=== PATIENT | male | born 1995 | race Caucasian/White ===

== ENCOUNTER 2023-08-05 15:33 | Emergency (ER) | payer OTHER, SELFPAY ==
[2023-08-05 15:42] VITALS: BP 119/80; PULSE 75; TEMP 37.7; O2SAT 99; BMI 24.1
--- NOTE | 2023-08-05 15:49 | ECG_ITS ---
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 Measurements Intervals [place] Rate: 73 P: 64 ME: 204 QRS: 60 QRSD: 97 T: 29 QT: 363 QTc: 400 Interpretive Statements SINUS RHYTHM No previous ECG available for comparison Electronically Signed On 08-05-2023 19:29:37 CDT by Dat Whitaker M.D. [id number]
--- NOTE | 2023-08-05 15:52 | XRR_ITS ---
PROCEDURE INFORMATION: Exam: XR Chest Exam date and time: 08/05/2023 4:07 PM Age: 28 years old Clinical indication: Pain; Angina pectoris; Additional info: Cp TECHNIQUE: Imaging protocol: Radiologic exam of the chest. Views: 1 view. COMPARISON: No relevant prior studies available. FINDINGS: Lungs: Unremarkable. No consolidation. Pleural spaces: Unremarkable. No pleural effusion. No pneumothorax. Heart/Mediastinum: Unremarkable. No cardiomegaly. Bones/joints: Unremarkable. XR/XR chest 1V portable [id number] IMPRESSION: No acute findings.
[2023-08-05 16:57] LABS: Basophils % 0.4 %; Eosinophils # 0.1 10^3/uL (0.0-0.8); Hematocrit 41.5 % (37-53); Lymphocytes # 1.5 10^3/uL (0.8-4.8); Lymphocytes % 31.7 %; Mean Corpuscular Hemoglobin 29.6 pg (27-33); Mean Platelet Volume 10.3 fL (7.4-10.4); Monocytes # 0.2 10^3/uL (0.2-0.9); Monocytes % 4.9 %; Neutrophils # 2.83 10^3/uL (1.8-7.7); Neutrophils % 59.8 %; Nucleated Red Blood Cells % 0 %; Platelet Count 140 10^3/cmm (157-399); Red Blood Count 4.77 10^6/uL (3.85-5.65); White Blood Count 4.73 10^3/uL (3.29-11.43)
[2023-08-05 17:11] LABS: Slide Review Slide Review Perform
[2023-08-05 17:19] LABS: Troponin(5th) Baseline 6 ng/L (0-15)
[2023-08-05 17:20] LABS: Alanine Aminotransferase 123 U/L (0-41); Albumin Level 3.8 g/dL (3.5-5.2); Alkaline Phosphatase 160 U/L (40-130); Anion Gap 13.3 (5-19); Aspartate Amino Transferase 64 U/L (0-40); Blood Urea Nitrogen 10 mg/dL (6-20); Calcium 8.3 mg/dL (8.5-10.5); Carbon Dioxide 28 mmol/L (22-29); Chloride 100 mmol/L (98-107); Globulin 2.1 g/dL (1.3-4.6); Glomerular Filtration Rate 87.7 mL/min (90-130); Glucose 99 mg/dL (65-115); Osmolality Calculated 283 mOsm/kg (285-295); Potassium 4.3 mmol/L (3.5-5.1); Sodium 137 mmol/L (136-145); Total Bilirubin 0.5 mg/dL (0.15-1.2); Total Protein 5.9 g/dL (6.6-8.7)
--- NOTE | 2023-08-05 18:01 | ECG_ITS ---
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 Measurements Intervals [place] Rate: 71 P: 35 PA: 180 QRS: 60 QRSD: 98 T: 35 QT: 375 QTc: 408 Interpretive Statements SINUS RHYTHM Compared to ECG 08/05/2023 15:49:11 No significant changes Electronically Signed On 08-05-2023 19:30:46 CDT by Dat Whitaker M.D. [id number]
--- NOTE | 2023-08-05 18:32 | ED_ITS ---
HPI - Weakness General: Chief complaint: Weakness Stated complaint: fever,bodyaches, chills, Time Seen by Provider: 08/05/23 18:22 History of Present Illness: Patient presents to the ER with complaints of fever body aches chills weakness is overall malaise for over 1 week. Patient's been seen multiple times at the urgent care and had blood work done there he said they thought he had a tickborne illness because his liver enzymes elevated and his platelets were low. They started him on clindamycin after being on Bactrim for about a week for abscess on his right abdominal wall. Now he says he has not been able to eat or drink just has not had any appetite. Has not had any nausea or vomiting he just has no desire. Patient states he actually feels much better now that has been here in the ER for several hours. Review of Systems General: Reports: 10 or more systems reviewed and unremarkable except in HPI and below Physical Exam Const: COMMON NORMALS: no acute distress, average body habitus, patient oriented x3, no limitations, healthy appearing, alert and well nourished HENMT: COMMON NORMALS: normocephalic, atraumatic, hearing grossly normal bilaterally, external ears normal and moist oral mucous membranes HEAD & SCALP: normocephalic and atraumatic EXTERNAL EAR: Yes external ears normal Eye: COMMON NORMALS: Equal, round and reactive pupils present, EOMs intact bilaterally, conjunctivae normal and no scleral icterus CONJUNCTIVA: Yes conjunctivae normal PUPIL: Yes Equal, round and reactive pupils present Neck/C-Spine: COMMON NORMALS: full ROM, no lymphadenopathy, supple, no meningeal signs, no JVD and Thyroid normal THYROID: Thyroid normal Lymph: LYMPHATIC: no lymphadenopathy noted Chest: COMMONS NORMALS: normal inspection of the chest and normal palpation of entire chest wall Resp: COMMON NORMALS: normal respiratory effort, No retractions, No use of accessory muscles and clear to auscultation bilaterally AUSCULTATION: clear to auscultation bilaterally Cardio: COMMON NORMALS: no JVD, regular rate, regular rhythm, S1 normal heart sound present, S2 normal heart sound present, No gallops present (Cardio), No clicks present (Cardio), No murmurs present (Cardio) and No rub (Cardio) RATE: regular rate RHYTHM: regular rhythm HEART SOUNDS: S1 normal heart sound present and S2 normal heart sound present GI: COMMON NORMALS: Normal to inspection, nondistended, normoactive bowel sounds present, Soft to palpation, non-tender, No hepatosplenomegaly present and no masses PALPATION: Yes Soft to palpation and Yes No hepatosplenomegaly present OTHER: Healing abscess type lesion on right lateral abdominal wall. : COMMON NORMALS: Yes no CVA tenderness BLADDER/KIDNEY EXAM: Yes no CVA tenderness Back/Pelvis: COMMON NORMALS: no CVA tenderness Neuro: COMMON NORMALS: patient oriented x3 SENSORIUM/ORIENTATION: Yes alert MENINGEAL SIGNS: Yes no meningeal signs Course Vital Signs: Vital signs: Vital Signs Temperature 99.8 F H 08/05/23 15:42 Pulse Rate 68 08/05/23 20:22 Blood Pressure 120/73 08/05/23 20:22 Pulse Oximetry 97 08/05/23 20:22 Oxygen Delivery Me thod Room Air 08/05/23 19:30 MDM - Weakness Medical Decision Making Patient presents to the ER for just not feeling well wanted to second opinion from urgent care. Patient has had lab work done COVID testing is on multiple antibiotics and is not feeling good all over. Patient is feeling better now since he says here for several hours. Patient did say he got 2 L of fluid similar earlier today. Lab work was obtained which revealed slightly elevated liver enzymes and slightly low platelets. These results were discussed with the patient and his family and since patient is feeling much better he will continue the current antibiotics and will be discharged from the ER to follow-up with his PCP Differential Diagnosis Unlikely acute myocardial infarction, anemia, hypoglycemia, hypothyroidism, rhabdomyolysis, sepsis or dehydration Medical Records I reviewed the patient's medical records. Lab Data I reviewed the patient's lab results. 08/05/23 16:39 08/05/23 16:39 Radiology Impressions Chest X-Ray 08/05/23 15:52 IMPRESSION: No acute findings. Laboratory Results WBC 4.73 10^3/uL (3.29-11.43) 08/05/23 16:39 RBC 4.77 10^6/uL (3.85-5.65) 08/05/23 16:39 Hgb 14.10 g/dL (11.27-16.99) 08/05/23 16:39 Hct 41.5 % (37-53) 08/05/23 16:39 MCV 87.0 fl (82-101) 08/05/23 16:39 MCH 29.6 pg (27-33) 08/05/23 16:39 MCHC 34.0 g/dL (30-55) 08/05/23 16:39 RDW 12.0 % (12.1-15.1) L 08/05/23 16:39 Plt Count 140 10^3/cmm (157-399) L 08/05/23 16:39 MPV 10.3 fL (7.4-10.4) 08/05/23 16:39 Neut % (Auto) 59.8 % 08/05/23 16:39 Lymph % (Auto) 31.7 % 08/05/23 16:39 Cassia % (Auto) 4.9 % 08/05/23 16:39 Eos % (Auto) 3.0 % 08/05/23 16:39 Baso % (Auto) 0.4 % 08/05/23 16:39 Neut # (Auto) 2.83 10^3/uL (1.8-7.7) 08/05/23 16:39 Lymph # (Auto) 1.5 10^3/uL (0.8-4.8) 08/05/23 16:39 Cassia # (Auto) 0.2 10^3/uL (0.2-0.9) 08/05/23 16:39 Eos # (Auto) 0.1 10^3/uL (0.0-0.8) 08/05/23 16:39 Baso # (Auto) 0.0 10^3/uL (0.0-0.1) 08/05/23 16:39 Nucleated RBC % (auto) 0 % 08/05/23 16:39 Nucleated RBCs # 0.0 /100WBC 08/05/23 16:39 Sodium 137 mmol/L (136-145) 08/05/23 16:39 Potassium 4.3 mmol/L (3.5-5.1) 08/05/23 16:39 Chloride 100 mmol/L (98-107) 08/05/23 16:39 Carbon Dioxide 28 mmol/L (22-29) 08/05/23 16:39 Anion Gap 13.3 (5-19) 08/05/23 16:39 BUN 10 mg/dL (6-20) 08/05/23 16:39 Creatinine 1.0 mg/dL (0.7-1.2) 08/05/23 16:39 GFR Calculation 87.7 mL/min (90-130) L 08/05/23 16:39 Glucose 99 mg/dL (65-115) 08/05/23 16:39 Calculated Osmolality 283 mOsm/kg (285-295) L 08/05/23 16:39 Calcium 8.3 mg/dL (8.5-10.5) L 08/05/23 16:39 Total Bilirubin 0.5 mg/dL (0.15-1.2) 08/05/23 16:39 AST 64 U/L (0-40) H 08/05/23 16:39 ALT 123 U/L (0-41) H 08/05/23 16:39 Alkaline Phosphatase 160 U/L (40-130) H 08/05/23 16:39 Troponin T Baseline 6 ng/L (0-15) 08/05/23 16:39 Troponin T 120 Minute 6.0 ng/L (0-15) 08/05/23 19:45 Delta Troponin T 0 ABS# (0-10) 08/05/23 19:45 Total Protein 5.9 g/dL (6.6-8.7) L 08/05/23 16:39 Albumin 3.8 g/dL (3.5-5.2) 08/05/23 16:39 Globulin 2.1 g/dL (1.3-4.6) 08/05/23 16:39 TSH 2.93 uIU/mL (0.27-4.20) 08/05/23 16:39 No radiology studies performed this visit Discharge Plan Discharge Patient Disposition: Home Clinical Impression: Liver enzyme elevation, Low platelet count, Generalized weakness Condition: Stable Discharge Orders: Discharge ED (Routine); Ordered 08/05/23 Ordered By: Agustin Whitfield Referrals: Parmjit Vasquez MD [Primary Care Provider] - 1 week Patient Instructions: Weakness (Generalized) Activity Restrictions/Additional Instructions: Continue current medications as discussed through the ER. Please follow-up with family practice physician within the next week for further evaluation and testing of elevated liver enzymes and low platelets. 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
[2023-08-05 18:41] VITALS: BP 102/83; PULSE 66; O2SAT 100
[2023-08-05 19:00] VITALS: BP 117/72; PULSE 66; O2SAT 99
[2023-08-05 19:30] VITALS: BP 119/71; PULSE 68; O2SAT 100
[2023-08-05 19:45] LABS: Thyroid Stimulating Hormone 2.93 uIU/mL (0.27-4.20)
[2023-08-05 20:22] VITALS: BP 120/73; PULSE 68; O2SAT 97
[2023-08-05 20:47] LABS: Troponin 5 2HR Delta 0 ABS# (0-10)
== END 2023-08-05 20:23 | disposition home or self-care (01) ==
PROVIDERS: Emergency Medicine; Emergency Provider Emergency Medicine; PCP Family Medicine
DX: R53.1 Weakness (principal); D69.6 Thrombocytopenia, unspecified; R74.8 Abnormal levels of other serum enzymes
CPT/HCPCS: 36415; 71045; 80053; 84443; 84484; 85025; 93005; 99285